=== PATIENT | female | born 1995 | race Caucasian/White ===

== ENCOUNTER 2023-08-05 15:15 | Emergency (ER) | payer MEDICAID ==
[~2023-08-05] VITALS: Ht 152.4 cm; Wt 56.7 kg
[2023-08-05] MEDS ORDERED: RITO100T4 PO (16:13)
[2023-08-05] MEDS ORDERED: ONDA4TAB11 PO (16:13)
[2023-08-05 16:23] VITALS: BP 102/70; TEMP 98.1; O2SAT 99
== END 2023-08-05 16:23 | disposition home or self-care (01) ==
LOC: ER 15:25
DX: U07.1 COVID-19 (principal); Z98.890 Other specified postprocedural states; Z79.899 Other long term (current) drug therapy; Z60.2 Problems related to living alone